=== PATIENT | male | born 1980 | race Caucasian/White ===

== ENCOUNTER 2024-11-01 17:28 | Emergency (ER) | payer BC ==
[~2024-11-01] VITALS: Ht 165.1 cm; Wt 69.0 kg
[2024-11-01 17:32] VITALS: O2SAT 100
[2024-11-01] MEDS ORDERED: SODIUM CHLORIDE 0.9% 1,000 ML IV ONE (18:00)
[2024-11-01 18:28] LABS: BASOPHILS % 0.3 % (0.0-2.0); EOSINOPHILS % 0.1 % (0.0-5.0); HEMATOCRIT. 47.4 % (42.0-52.0); HEMOGLOBIN. 16.2 g/dL (14.0-18.0); LYMPHOCYTES % 8.6 % (20.0-50.0); MEAN CORPUSCULAR HEMOGLOBIN 32.1 pg (28.0-32.0); MEAN CORPUSCULAR HGB CONC 34.2 g/dL (31.0-37.0); MEAN CORPUSCULAR VOLUME 93.7 fL (80.0-94.0); MEAN PLATELET VOLUME 9.5 fl (7.4-10.4); MONOCYTES % 5.4 % (2.0-8.0); NEUTROPHILS % 85.6 % (40.0-76.0); PLATELET 240 x1000/uL (130-400); RED BLOOD CELL COUNT 5.06 mill/uL (4.7-6.1); RED CELL DISTRIBUTION WIDTH 14.6 % (11.6-14.6); WHITE BLOOD COUNT 10.6 x1000/uL (4.5-11.0)
[2024-11-01] MEDS: ONDANSETRON HCL 4MG/2ML INJ IV STA (18:35)
[2024-11-01] MEDS: SODIUM CHLORIDE 0.9% 1,000 ML IV ONE (18:36)
[2024-11-01] MEDS: MORPHINE SULFATE 4 MG/ML INJ (FOR IV/IM USE) IV STA (18:36)
[2024-11-01 18:40] LABS: CHLORIDE 97 mEq/L (98-107); SODIUM 138 mEq/L (136-145)
[2024-11-01 18:41] LABS: CARBON DIOXIDE 21 mEq/L (21-32)
[2024-11-01 18:42] LABS: CALCIUM 8.8 mg/dL (8.7-10.4)
[2024-11-01 18:46] LABS: BG DEOXYHEMOGLOBIN 7.2 % (0.0-5.0)
[2024-11-01 18:46] LABS: GLUCOSE 280 mg/dL (70-105); UREA NITROGEN BLOOD 8 mg/dL (9-23)
[2024-11-01 18:47] LABS: ETHANOL BLOOD 257 mg/dL (<10)
[2024-11-01 19:07] VITALS: TEMP 36.8
[2024-11-01 19:14] VITALS: TEMP 98.24
[2024-11-01 19:27] LABS: LACTIC ACID 4.7 mmol/L (0.4-2.0)
[2024-11-01] MEDS ORDERED: ONDA-239 PO (19:28)
[2024-11-01] MEDS: ONDANSETRON HCL 4MG/2ML INJ IV ONE (19:50)
[2024-11-01 19:57] VITALS: BP 121/7; PULSE 73; RESP 18; O2SAT 95
== END 2024-11-01 20:01 | disposition home or self-care (01) ==
LOC: ER 17:28
DX: E10.649 Type 1 diabetes mellitus with hypoglycemia without coma (principal); F10.129 Alcohol abuse with intoxication, unspecified; I49.9 Cardiac arrhythmia, unspecified; Y90.8 Blood alcohol level of 240 mg/100 ml or more
CPT/HCPCS: 80048; 80320; 83605; 83690; 85025; 36415; 82375; 82803; 93005; 96361; 96374; 96375; 96376; 99284; J2405; J2270; J7030; Z7610 ×3; A4606; G0480